=== PATIENT | female | born 1945 | race Caucasian/White ===

== ENCOUNTER 2017-08-26 16:21 | Observation (INO) | payer MEDICARE ==
[~2017-08-26] VITALS: Ht 162.6 cm; Wt 71.1 kg
[~2017-08-26 16:21] MED LIST: CYMBALTA30 MG PO; ENDOCET 7.5-321 EACH PO; GABAPENTIN800 MG PO; NORCO 5-325 TA1 EACH PO; PERCOCET 5-3251 EACH PO; PROZAC20 MG PO; WELLBUTRIN XL300 MG PO
[2017-08-26] MEDS ORDERED: PERCOCET 7.5-31 EACH PO (19:02)
--- NOTE | 2017-08-26 21:30 | NUR ---
PT ARRIVED ON FLOOR AT 1954. PAIN CONTROL HAS BEEN AN ISSUE. WILL CALL MD BUENROSTRO.
--- NOTE | 2017-08-26 22:15 | NUR ---
MD BUENROSTRO WAS CALLED AND AN ORDER FOR DILAUDED 0.5-1.0MG Q1HRS WAS GIVEN. WILL CONTINUE TO MONITOR FOR PAIN AND PULSES IN LLE.
--- NOTE | 2017-08-26 23:19 | NUR ---
medicated with dilaudid 1mg iv 10/10 left ankle
--- NOTE | 2017-08-27 00:48 | NUR ---
ADMINISTERED 1MG DILAUDID IV PRN FOR PT REPORTED 9/10 PAIN IN LEFT ANKLE, PT STATING "LIKE A LABOR PAIN", DROPS BACK BETWEEN 5 AND 6/10 PAIN. PT ALSO REPORTING ITCHING AT THIS TIME. PT GIVEN ICE WATER FOR MOUTH SWABS, NO ADDITIONAL REQUESTS AT THIS TIME.
--- NOTE | 2017-08-27 00:59 | NUR ---
PAIN IS WELL CONTROLLED NOW. BRUNSON HAS BEEN INSERTED, V/S ARE WDL. LLE TOES ARE WARM TO TOUCH. NO NEW CONCERNS AT THIS TIME.
--- NOTE | 2017-08-27 01:47 | NUR ---
VITALS AND I&OS DONE. PT STATES SHE IS DOING FINE AND NEEDS NOTHING AT THIS TIME. BEDSIDE TABLE AND CALL LIGHT WITHIN REACH.
--- NOTE | 2017-08-27 03:41 | NUR ---
medicated with Dilaudid 1mg IV c/o 05/09 left ankle pain. brace in place.
--- NOTE | 2017-08-27 04:00 | NUR ---
PT IS SLEEPING AT THIS TIME. PAIN MEDICATION WAS GIVEN BY DRY ROLLER
--- NOTE | 2017-08-27 05:54 | NUR ---
V/S ARE WDL, PT HAS BEEN NPO SINCE 0000. OUTPUT IS ADEQUATE, PAIN CONTROL WAS A PROBLEM AT FIRST. MD BUENROSTRO CHANGED DILAUDED ORDER AND PAIN HAS BEEN WELL CONTROLLED SINCE. LLE EDEMA NOW IS +2, DORSALIS PEDIS IS NOW +1, LLE IS WARM TO TOUCH, BOOT IS ON.
--- NOTE | 2017-08-27 06:26 | NUR ---
DR BUENROSTRO HERE TO SEE PT, CONSENT SIGNED
--- NOTE | 2017-08-27 07:22 | NUR ---
08/27/17 0722 Zeferino Vaughn RESPONDS TO TAP AND VOICE ON ENTRY TO PACU. FALLS ASLEEP EASILY. DESATURATES TO 88% ON ROOM AIR. 3L O2 STARTED VIA NC AND PT FOLLOWS COMANDS TO DEEP BREATHE
[2017-08-27] MEDS ORDERED: OXYCODONE HCL5 MG PO (07:36)
[2017-08-27] MEDS ORDERED: ONDANSETRON ODT4 MG SL (07:37)
--- NOTE | 2017-08-27 07:49 | NUR ---
pt arrived back to room from or via bed. oriented to room and call light. rating pain 3/10 in left ankle. good cms. plaster cast in place with ice. elevated on pillow.
--- NOTE | 2017-08-27 08:12 | NUR ---
pt up to bedside commode with 2 person assist. non weight barring to left ankle. pt tolerated pivot transfer well. back to bed. denies further needs at this time. call light within reach.
--- NOTE | 2017-08-27 09:00 | NUR ---
PT UP TO BEDSIDE COMMODE. PIVOT TRANSFER. NON WEIGHT BARRING ON LEFT LOWER EXTREMITY. TOLERATED WELL. BACK TO BED. DISCUSSED DISCHARGE PLAN.
--- NOTE | 2017-08-27 09:59 | NUR ---
PT IS RESTING IN BED SAFELY WITH CALL LIGHT IN REACH. PT DID NOT NEED ANYTHING ELSE AT THE MOMENT
--- NOTE | 2017-08-27 10:21 | NUR ---
pt resting in bed. denies pain. discussed plan of care. pt would like to discharge after lunch.
--- NOTE | 2017-08-27 10:45 | NUR ---
Pt up to bedside commode and back to bed. non weight barring. tolerated well
--- NOTE | 2017-08-27 12:15 | NUR ---
pt discharge instructions given on medication, follow-up, when to contact md, activity, and diet. verbalized understanding.
--- NOTE | 2017-08-27 22:59 | EKG ---
[facility] [address] [facility] [place] [address] Signed Sinus rhythm with premature atrial complexes Otherwise normal ECG No previous ECGs available Confirmed by LAUREEN ZUNIGA MD ([id number]) on 08/27/2017 10:59:19 PM Electronically Signed By: LAUREEN ZUNIGA MD 08/27/17 2259 PATIENT NAME: KATHARINA DOYLE Electrocardiogram DATE OF : 47 PHYSICIAN: LAUREEN ZUNIGA MD REPORT #: [id number] REPORT IS CONFIDENTIAL AND NOT TO BE RELEASED WITHOUT AUTHORIZATION
--- NOTE | 2017-08-31 08:43 | OR ---
[facility] [address] [place], [place] [address] Signed DATE OF OPERATION: 08/27/2017 SURGEON: Radha Flores MD PREOPERATIVE DIAGNOSIS: Fracture/dislocation, trimalleolar, left ankle. POSTOPERATIVE DIAGNOSIS: Fracture/dislocation, trimalleolar, left ankle. PROCEDURE PERFORMED: Closed reduction and casting. ANESTHESIA: General. MANAGING PARTNER: None. BRIEF HISTORY: Katharina is a 72-year-old female suffered a ground-level fall yesterday afternoon attempted reduction in the ER was unsuccessful x3. She was admitted overnight for pain control and with a plan to take her to the operating room, sedation this morning and reduce the fracture. Risks, benefits, and alternatives were discussed with her. She elected to proceed. DESCRIPTION OF PROCEDURE: Once consent was obtained, she was taken to the operating room. After adequate anesthesia, the fracture boot from the ER was removed. The foot was slightly dorsiflexed and drawn anteriorly with a palpable reduction felt. Image intensifier was brought in, good reduction on AP and sagittal views were noted. She was then placed in a posterior splint with side pieces utilizing plaster. Postcasting views showed the reduction to be well maintained with her foot in neutral position. She was then awakened and taken to recovery room in satisfactory condition. All sponge, needle, and instrument counts were correct. Electronically Signed By: RADHA FLORES MD 08/31/17 0843 PATIENT NAME: KATHARINA DOYLE OPERATIVE REPORT DATE OF : 47 PHYSICIAN: RADHA FLORES MD REPORT #: [id number] REPORT IS CONFIDENTIAL AND NOT TO BE RELEASED WITHOUT AUTHORIZATION [address] [address] Signed Radha Flores MD BA/MODL /[id number] Electronically Signed By: RADHA FLORES MD 08/31/17 0843 PATIENT NAME: KATHARINA DOYLE OPERATIVE REPORT DATE OF : 47 PHYSICIAN: RADHA FLORES MD REPORT #: [id number] REPORT IS CONFIDENTIAL AND NOT TO BE RELEASED WITHOUT AUTHORIZATION
[2017-09-10] MEDS ORDERED: NEURONTIN400 MG PO (09:40)
== END 2017-08-27 12:05 | disposition home or self-care (01) ==
LOC: ED 16:21 → MS 16:23
PROVIDERS: ADMIT Specialist
PROC: 0QSHXZZ Reposition Left Tibia, External Approach (ICD-10-PCS; 2017-08-27)
PROC: 3E0T3BZ Introduction of Anesthetic Agent into Peripheral Nerves and Plexi, Percutaneous Approach (ICD-10-PCS; 2017-08-27)
PROC: 3E0T33Z Introduction of Anti-inflammatory into Peripheral Nerves and Plexi, Percutaneous Approach (ICD-10-PCS; 2017-08-27)
PROC: 0QSKXZZ Reposition Left Fibula, External Approach (ICD-10-PCS; principal; 2017-08-27 07:00)
DX: S82.852A Displaced trimalleolar fracture of left lower leg, initial encounter for closed fracture (principal); W01.0XXA Fall on same level from slipping, tripping and stumbling without subsequent striking against object, initial encounter; F31.9 Bipolar disorder, unspecified; M19.90 Unspecified osteoarthritis, unspecified site; G89.18 Other acute postprocedural pain; Z79.891 Long term (current) use of opiate analgesic; Z88.5 Allergy status to narcotic agent
CPT/HCPCS: 64445; 71020; 73600; 73610; 76942; 80048; 85025; 93005; 93010; 94762; 96374; 96375; 96376; 97110; 97161; 99285; G0378; G8978; G8979; G8980; J1100; J1170; J2250; J2405; J2704; J2795; J3010; J7120

== ENCOUNTER 2017-08-29 10:45 | Emergency (ER) | payer MEDICARE ==
[~2017-08-29] VITALS: Ht 162.6 cm; Wt 70.3 kg
[~2017-08-29 10:45] MED LIST changes: +ONDANSETRON ODT4 MG SL; +OXYCODONE HCL5 MG PO; +PERCOCET 7.5-31 EACH PO
[2017-08-29] MEDS ORDERED: PREDNISONE10 MG PO (11:22)
[2017-08-29] MEDS ORDERED: NAPROXEN375 MG PO (11:22)
[2017-08-29] MEDS ORDERED: VALACYCLOVIR1000 MG PO (11:22)
[2017-08-29] MEDS ORDERED: AMITRIPTYLINE H25 MG PO (11:22)
[2017-09-10] MEDS ORDERED: NEURONTIN400 MG PO (09:40)
== END 2017-08-29 11:36 | disposition home or self-care (01) ==
LOC: ED 10:45
DX: B02.9 Zoster without complications (principal); Z90.710 Acquired absence of both cervix and uterus; Z88.8 Allergy status to other drugs, medicaments and biological substances; Z91.048 Other nonmedicinal substance allergy status
CPT/HCPCS: 99283; J7512

== ENCOUNTER 2017-09-13 06:50 | Day surgery (SDC) | payer MEDICARE ==
[~2017-09-13] VITALS: Ht 162.6 cm; Wt 70.6 kg
[~2017-09-13 06:50] MED LIST changes: +AMITRIPTYLINE H25 MG PO; +NAPROXEN375 MG PO; +NEURONTIN400 MG PO; +PREDNISONE10 MG PO; +VALACYCLOVIR1000 MG PO
[2017-09-13] MEDS ORDERED: HYDROCODON-ACE1 EA11 PO (11:10)
--- NOTE | 2017-09-13 11:28 | NUR ---
09/13/17 1128 Yamilet Rice PT ARRIVED AT 1110, PT ON 6 l OF o2, PT HAD A ORAL A AIRWAY IN PLACE, REMOVED AFTER PT WAS IN ROOM 1112,
--- NOTE | 2017-09-13 13:49 | NUR ---
PT SITTING IN BED, ALERT AND ORIENTED. SEEMED TO BE PREPARED, HAD FEW QUESTIONS. VERY PLEASANT, REQUESTED PRAYER. WILL FOLLOW NEEDED
--- NOTE | 2017-09-13 14:07 | NUR ---
LE 1215: PT ARRIVES TO DS VIA STRETCHER FROM PACU. PT GIVEN JELLO, CRACKERS, WATER AND COFFEE. TOLERATED WELL. SEVERAL VISITORS IN ROOM AT REPORT. LE 1245: PT TOLERATES PAIN, BUT ENCOURAGED TO TAKE PAIN MEDICATION TO STAY AHEAD OF PAIN. PT RECEIVED TWO TABS OF NORCO AND TOLERATED WELL. LE 1325: PT UP TO BEDSIDE COMMODE WITH RN ASSIST. AMBULATES ON RIGHT FOOT WELL, RARELY USING LEFT FOOT FOR BALANCE. NO FURTHER COMPLAINTS OR REQUESTS. LE 1350: PT DC'D FROM DS VIA WHEELCHAIR. NORCO ORDER IN HAND, DAUGHTER TO DRIVE HER HOME.
--- NOTE | 2017-09-14 08:04 | OR ---
[facility] [address] [place], [place] [address] Signed DATE OF OPERATION: 09/13/2017 SURGEON: Radha Flores MD PREOPERATIVE DIAGNOSIS: Left trimalleolar ankle fracture, displaced. POSTOPERATIVE DIAGNOSIS: Left trimalleolar ankle fracture, displaced. PROCEDURE PERFORMED: Open reduction and internal fixation trimalleolar ankle fracture. BITE BLOCK MAKER: ELIER Nathan was present for the entire procedure and was critical for positioning, retraction, and wound closure. ANESTHESIA: General with sciatic block. TOURNIQUET TIME: Approximately 60 minutes. IMPLANTS: Synthes 7-hole 1/3rd tubular plate laterally, 3-hole hook plate medially and 13 screws. BRIEF HISTORY: Munira is a 72-year-old female, who suffered a fracture and dislocation that I ended up reducing in the operating room and placing in a splint. She had extensive soft tissue damage and swelling. We elected to let this settle down prior to surgery. DESCRIPTION OF PROCEDURE: Once consent was obtained, she was taken to the operating room. After adequate anesthesia and par conference, she was placed on the operating room table. All downside pressure points were well-padded. The left leg was placed in well-padded proximal thigh tourniquet. The leg was then prepped and draped in a standard sterile fashion and exsanguinated using Esmarch bandage. Tourniquet inflated to 250 mmHg. The lateral side was approached first. A longitudinal 3.5 inch incision was made and carried through Electronically Signed By: RADHA FLORES MD 09/14/17 0804 PATIENT NAME: MUNIRA DOYLE OPERATIVE REPORT DATE OF : 47 PHYSICIAN: RADHA FLORES MD REPORT #: [id number] REPORT IS CONFIDENTIAL AND NOT TO BE RELEASED WITHOUT AUTHORIZATION [facility] [address] [place], [place] [address] Signed skin and subcutaneous tissue, directly down to bone. The periosteum was elevated anteriorly and posteriorly. The fracture was distracted and cleaned of debris. There was a fair amount of soft tissue releases necessary to get the fracture reduced into its anatomic position. This was reduced and clamped and a single 3.5 screw was placed from anterior to posterior using standard AO lag technique. The 7-hole plate was then centered laterally and cheated just a little bit posterior. It was held with a single screw in the center portion and checked for alignment and found to be good. The top 4 screws were drilled and appropriate length cortical screws were placed. A single cancellous screw was placed in the third hole distally and 2 locking screws placed in the distal 2 holes. Excellent reduction was maintained. The bone quality was fair. The attention was then turned to the medial side. We left the lateral side open, in case we had to reduce the posterior fracture. The medial side was approached through a longitudinal 2 inch incision and carried through skin and subcutaneous tissue. Because of the size, elected to go ahead and proceed with the hook plate and the fracture was reduced and held and the hook plate was placed on the medial aspect after cleaning the periosteum. A single 45 mm screw was then placed from the tip of the medial malleolus engaging the body of malleolus proximally and 3 screws were drilled and appropriate length screws placed. Radiograph showed excellent position and maintenance of the reduction. The posterior fragment was quite large and using a large bone clamp, I was able to reduce it and clamped it through a stab incision anteriorly. We did stick behind the fibula with a clamp. A single 3.5 screw was then placed from the anterior portion of the tibia engaging the fragment and holding it in position. The clamp was reduced. The ankle was moved and found to be stable. The wounds were copiously irrigated with antibiotic solution, closed with 2-0 Vicryl and 2-0 Monocryl and franck for the skin. The wounds were dressed with Mepilex Ag dressing, ABD, and Darien wrap. She was placed back in her fracture boot and taken to recovery room in satisfactory condition. All sponge, needle, and instrument counts were correct. Radha Flores MD BA/PEDRO /[id number] Electronically Signed By: RADHA FLORES MD 09/14/17 0804 PATIENT NAME: MUNIRA DOYLE OPERATIVE REPORT DATE OF : 47 PHYSICIAN: RADAH FLORES MD REPORT #: [id number] REPORT IS CONFIDENTIAL AND NOT TO BE RELEASED WITHOUT AUTHORIZATION
== END 2017-09-13 13:54 | disposition home or self-care (01) ==
LOC: DS 06:50
PROVIDERS: Specialist
PROC: 0QSK04Z Reposition Left Fibula with Internal Fixation Device, Open Approach (ICD-10-PCS; principal; 2017-09-13 09:00)
DX: S82.852A Displaced trimalleolar fracture of left lower leg, initial encounter for closed fracture (principal); F32.9 Major depressive disorder, single episode, unspecified; Z88.8 Allergy status to other drugs, medicaments and biological substances; Z79.899 Other long term (current) drug therapy; W01.0XXA Fall on same level from slipping, tripping and stumbling without subsequent striking against object, initial encounter
CPT/HCPCS: 01480; 73600; C1713; J0690; J1100; J1885; J2250; J2405; J2765; J2795; J3010; J7120

== ENCOUNTER 2019-01-10 19:32 | Emergency (ER) | payer MEDICARE ==
[~2019-01-10] VITALS: Ht 162.6 cm; Wt 46.9 kg
[~2019-01-10 19:32] MED LIST changes: +HYDROCODON-ACE1 EA11 PO; +PROZAC10 MG PO
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
[2019-01-10] MEDS ORDERED: WELLBUTRIN XL300 MG PO (19:49)
[2019-01-10] MEDS ORDERED: AUGMENTIN 875-1 EACH PO (20:45)
== END 2019-01-10 21:13 | disposition home or self-care (01) ==
LOC: ED 19:32
DX: S61.452A Open bite of left hand, initial encounter (principal); W54.0XXA Bitten by dog, initial encounter; F31.9 Bipolar disorder, unspecified; Z88.8 Allergy status to other drugs, medicaments and biological substances; Z91.048 Other nonmedicinal substance allergy status; Z79.899 Other long term (current) drug therapy
CPT/HCPCS: 12002; 99283-25